=== PATIENT | male | born 1975 | race African-American/Black ===

== ENCOUNTER 2018-09-02 22:54 | Emergency (ER) | payer MEDICAID ==
[~2018-09-02] VITALS: Ht 188 cm; Wt 114.0 kg
[2018-09-03] MEDS ORDERED: ONDANSETRON HCL 4MG/2ML INJ IV STA (00:11)
[2018-09-03] MEDS ORDERED: MORPHINE SULFATE 4 MG/ML CPJ (NOT FOR IM USE) IV STA (00:11)
[2018-09-03] MEDS ORDERED: SODIUM CHLORIDE 0.9% 1,000 ML IV ONE (00:11)
[2018-09-03 00:59] LABS: HEMATOCRIT. 46.2 % (42.0-52.0); HEMOGLOBIN. 15.2 g/dL (14.0-18.0); MEAN CORPUSCULAR HEMOGLOBIN 28.2 pg (28.0-32.0); MEAN CORPUSCULAR VOLUME 85.6 fL (80.0-94.0); MEAN PLATELET VOLUME 9.2 fl (7.4-10.4); PLATELET 229 x1000/uL (130-400); RED CELL DISTRIBUTION WIDTH 14.3 % (11.6-14.6)
[2018-09-03 01:04] LABS: INR 1.2; PROTHROMBIN TIME 12.3 sec (9.1-11.1)
[2018-09-03 01:05] LABS: CHLORIDE 103 mEq/L (98-107)
[2018-09-03 01:09] LABS: ETHANOL BLOOD < 10 mg/dL
[2018-09-03 01:37] LABS: CLARITY URINE CLOUDY (CLEAR); COLOR URINE DARK YELLOW (YELLOW); KETONES URINE TRACE (NEGATIVE); LEUKOCYTE ESTERASE URINE NEGATIVE (NEGATIVE); NITRITE URINE NEGATIVE (NEGATIVE); OCCULT BLOOD URINE NEGATIVE (NEGATIVE); PROTEIN URINE 1+ (NEGATIVE); SPECIFIC GRAVITY URINE 1.036 (1.005-1.030); UROBILINOGEN URINE 0.2 E.U./dL (0.2-1.0)
[2018-09-03] MEDS ORDERED: ACETAMINOPHEN 325MG TABLET PO ONE (01:45)
[2018-09-03 01:48] LABS: *AMPHETAMINES SCREEN URINE NEGATIVE (NEGATIVE); *BARBITURATES SCREEN URINE NEGATIVE (NEGATIVE); *BENZODIAZEPINES SCREEN URINE NEGATIVE (NEGATIVE); *COCAINE SCREEN URINE NEGATIVE (NEGATIVE); METHADONE URINE SCREEN NEGATIVE (NEGATIVE); OPIATES URINE SCREEN NEGATIVE (NEGATIVE)
[2018-09-03 01:49] LABS: CANNABINOID URINE SCREEN NEGATIVE (NEGATIVE); PHENCYCLIDINE URINE SCREEN NEGATIVE (NEGATIVE)
[2018-09-03 02:13] VITALS: BP 136/89
[2018-09-03 03:13] LABS: PLATELET ESTIMATE NORMAL
== END 2018-09-03 02:14 | disposition home or self-care (01) ==
LOC: EDSEX 22:54 → ER 22:54
DX: E86.0 Dehydration (principal); M54.6 Pain in thoracic spine; R19.7 Diarrhea, unspecified; R11.2 Nausea with vomiting, unspecified
CPT/HCPCS: 36415; 80053; 80305; 80320; 81003; 83690; 85025; 85610; 96360; 99283; J2270; J2405; J7030; Z7610; G0480

== ENCOUNTER 2019-06-17 22:22 | Emergency (ER) | payer MEDICAID ==
[~2019-06-17] VITALS: Ht 188 cm; Wt 114.3 kg
[2019-06-18] MEDS ORDERED: ACETAMINOPHEN 325MG TABLET PO ONE (01:15)
[2019-06-18] MEDS ORDERED: KETOROLAC 60MG/2ML VIAL IM ONE (01:30)
[2019-06-18 03:05] LABS: BASOPHILS % 0.9 % (0.0-2.0); EOSINOPHILS % 1.3 % (0.0-5.0); HEMATOCRIT. 41.8 % (42.0-52.0); HEMOGLOBIN. 14.1 g/dL (14.0-18.0); LYMPHOCYTES % 24.4 % (20.0-50.0); MEAN CORPUSCULAR HEMOGLOBIN 28.5 pg (28.0-32.0); MEAN CORPUSCULAR VOLUME 84.4 fL (80.0-94.0); MEAN PLATELET VOLUME 9.8 fl (7.4-10.4); MONOCYTES % 6.6 % (2.0-8.0); NEUTROPHILS % 66.8 % (40.0-76.0); PLATELET 263 x1000/uL (130-400); RED BLOOD CELL COUNT 4.95 mill/uL (4.7-6.1); RED CELL DISTRIBUTION WIDTH 13.3 % (11.6-14.6)
[2019-06-18 03:18] LABS: CHLORIDE 105 mEq/L (98-107)
[2019-06-18] MEDS ORDERED: MAGNESIUM/ALUMINUM HYDROXIDE/SIMETHICONE 30ML UDC PO STA (03:32)
[2019-06-18 03:59] VITALS: BP 159/92
== END 2019-06-18 04:01 | disposition home or self-care (01) ==
LOC: ER 22:22
DX: K76.0 Fatty (change of) liver, not elsewhere classified (principal); R10.9 Unspecified abdominal pain; J45.909 Unspecified asthma, uncomplicated
CPT/HCPCS: 36415; 76700; 80053; 83690; 85025; 96372; 99283; J1885; Z7610

== ENCOUNTER 2019-06-20 21:47 | Emergency (ER) | payer MEDICAID ==
[~2019-06-20] VITALS: Ht 188 cm; Wt 115.0 kg
[2019-06-21] MEDS ORDERED: ENALAPRIL 2.5MG/2ML VIAL 2ML IV ONE (01:00)
[2019-06-21 01:12] LABS: BASOPHILS % 0.6 % (0.0-2.0); EOSINOPHILS % 2.6 % (0.0-5.0); HEMATOCRIT. 41.1 % (42.0-52.0); HEMOGLOBIN. 13.5 g/dL (14.0-18.0); LYMPHOCYTES % 26.1 % (20.0-50.0); MEAN CORPUSCULAR HEMOGLOBIN 28.3 pg (28.0-32.0); MEAN CORPUSCULAR VOLUME 85.8 fL (80.0-94.0); MEAN PLATELET VOLUME 9.5 fl (7.4-10.4); MONOCYTES % 10.5 % (2.0-8.0); NEUTROPHILS % 60.2 % (40.0-76.0); PLATELET 237 x1000/uL (130-400); RED BLOOD CELL COUNT 4.79 mill/uL (4.7-6.1); RED CELL DISTRIBUTION WIDTH 13.2 % (11.6-14.6)
[2019-06-21 01:19] LABS: CHLORIDE 105 mEq/L (98-107)
[2019-06-21] MEDS ORDERED: CLONIDINE 0.2MG TABLET PO ONE (02:30)
[2019-06-21 03:28] VITALS: BP 158/90
== END 2019-06-21 03:44 | disposition home or self-care (01) ==
LOC: ER 21:47
DX: R07.9 Chest pain, unspecified (principal); I10 Essential (primary) hypertension; J45.909 Unspecified asthma, uncomplicated
CPT/HCPCS: 36415; 71045; 80053; 83880; 84484; 85025; 93005; 96374; 99284; J3490; Z7610